=== PATIENT | female | born 1985 | race Caucasian/White ===

== ENCOUNTER 2017-09-27 05:37 | Emergency (ER) | payer BC | END 2017-09-27 06:38 | disposition home or self-care (01) | LOC: ERS 05:37 | DX: L27.1 Localized skin eruption due to drugs and medicaments taken internally (principal); T37.0X5A Adverse effect of sulfonamides, initial encounter; Z79.82 Long term (current) use of aspirin; Z79.899 Other long term (current) drug therapy | CPT/HCPCS: 99282 ==

== ENCOUNTER 2018-04-20 14:17 | Emergency (ER) | payer BC ==
[~2018-04-20 14:17] MED LIST: Iopamidol 370 76% 100 ML VIAL ONE
[2018-04-20 14:56] LABS: #Basophils 0.1 thou/uL (0.0-0.2); #Eosinphils 0.2 thou/uL (0.0-0.7); #Monocytes 0.7 thou/uL (0.11-0.59); #Neutrophils 8.6 thou/uL (1.40-6.50); %Basophils 0.5 % (0.0-1.0); %Eosinophils 1.3 % (0.0-10.0); %Lymphocytes 29.7 % (21.0-51.0); %Monocytes 5.3 % (0.0-10.0); %Neutrophils 63.3 % (42.0-75.0); Hemoglobin 12.4 g/dL (12.0-16.0); Mean Corpuscular HGB CONC 32.8 g/dL (32.0-36.0); Mean Corpuscular Hemoglobin 27.9 pg (27.0-31.0); Mean Platelet Volume 6.9 fL (7.4-10.4); Platelet Count 320 thou/uL (130-400); RBC Distribution Width 13.6 % (11.5-14.5); Red Blood Cell (RBC) Count 4.46 mill/uL (4.20-5.40); White Blood Cell (WBC) Count 13.6 thou/uL (4.8-10.8)
[2018-04-20 15:16] LABS: ALT (SGPT) 11 U/L (8-55); AST (SGOT) 13 U/L (5-34); Albumin 4.1 g/dL (3.5-5.0); Alkaline Phosphatase 98 U/L (40-150); Anion Gap 15 mmol/L (10-20); BUN (Urea Nitrogen) 16 mg/dL (7.0-18.7); Bilirubin, Total 0.2 mg/dL (0.2-1.2); Calc. Creatinine Clearance 0 mL/min (70-130); Calcium 9.6 mg/dL (7.8-10.44); Carbon Dioxide 24 mmol/L (22-29); Chloride 104 mmol/L (98-107); Estimated GFR-MDRD 78; Globulin 3.8 g/dL (2.4-3.5); Glucose 107 mg/dL (70-105); Potassium 3.8 mmol/L (3.5-5.1); Protein, Total 7.9 g/dL (6.0-8.3); Sodium 139 mmol/L (136-145)
[2018-04-20 15:20] LABS: CKMB 0.4 ng/mL (0-6.6); Troponin I Less than 0.010 ng/mL (< 0.028)
--- NOTE | 2018-04-20 15:54 | CT ---
CT ANGIOGRAM OF THE CHEST: HISTORY: Chest pain. COMPARISON: None. TECHNIQUE: CT angiogram of the chest was performed in the axial plane. Three-dimensional reformatted images are submitted for interpretation. FINDINGS: Adequate contrast opacification of the pulmonary arterial system to the level of the segmental arteri es. No filling defect to suggest thromboembolism. No mediastinal mass, lymphadenopathy, or hematoma. Heart size is within normal limits. No pericardi al effusion. The thoracic aorta and upper abdominal aorta have an overall normal caliber. No periao rtic fat stranding. Visualized upper solid organs are unremarkable. Visualized lung parenchyma are clear of any messes or consolidation. Trachea and central bronchi are patent. No pleural effusion or pneumothorax. No lytic or blastic lesions in the osseous structures. IMPRESSION: No evidence of pulmonary artery embolism to the level of the segmental arteries. POS: [facility]
== END 2018-04-20 17:06 | disposition home or self-care (01) ==
LOC: ERS 14:17
DX: R07.89 Other chest pain (principal); Z79.899 Other long term (current) drug therapy
CPT/HCPCS: 71275; 80053; 82553; 84484; 85025; 93005

== ENCOUNTER 2018-11-27 13:33 | Emergency (ER) | payer BC ==
--- NOTE | 2018-11-27 15:52 | ULT ---
VENOUS DOPPLER ULTRASOUND OF THE LEFT LOWER EXTREMITY: Date: 11/27/18 HISTORY: Left leg edema. TECHNIQUE: Johns scale ultrasound with color flow and spectral Doppler imaging of the deep venous system of the l eft lower extremity performed. FINDINGS: There is good flow, compression, and augmentation noted in the left common femoral, femoral, deep fem oral, popliteal, posterior tibial, and greater saphenous veins. IMPRESSION: No evidence of deep venous thrombosis in the left lower extremity. POS: OFF
== END 2018-11-27 15:30 | disposition home or self-care (01) ==
LOC: SCSER 13:33
DX: M79.605 Pain in left leg (principal); F41.9 Anxiety disorder, unspecified; F32.9 Major depressive disorder, single episode, unspecified; Z79.899 Other long term (current) drug therapy

== ENCOUNTER 2018-12-18 08:04 | Outpatient (CLI) | payer BC ==
--- NOTE | 2018-12-18 10:13 | MRI ---
MRI LUMBAR SPINE: Date: 12-18-18 Provided Clinical History: Low back pain. FINDINGS: Five non-rib bearing lumbar type vertebral bodies are present on the lumbar spine radiographs of [id number]. Lumbar alignment remains normal. Vertebral body heights are preserved. No focal concerning jonas onal marrow signal abnormality is evident. The conus medullaris is normal in signal and terminates at an appropriate level. The visualized extraspinal soft tissues appear unremarkable. L1-2: There is no significant central canal or foraminal narrowing apparent. L2-3: There is no significant central canal or foraminal narrowing apparent. L3-4: There is no significant central canal or foraminal narrowing apparent. L4-5: There is a broad based disc bulge with an annular tear involving the dorsal disc margin. There is mild central canal stenosis. There is no significant foraminal narrowing apparent. Mild bilateral facet arthritis. L5-S1: There is mild bilateral facet arthritis. There is no significant central canal or foraminal na rrowing apparent. IMPRESSION: 1. Mild lower lumbar disc degenerative change as above. POS: [facility]
== END 2018-12-18 08:05 | disposition home or self-care (01) ==
LOC: SCSMRI 08:04
PROVIDERS: ATTEND Physician Assistant
DX: M54.5 Low back pain (principal); M47.896 Other spondylosis, lumbar region
CPT/HCPCS: 72148